=== PATIENT | male | born 1975 | race Two or more races ===

== ENCOUNTER 2019-02-07 11:11 | Outpatient (CLI) | payer OTHER | END 2019-02-07 11:17 | disposition home or self-care (01) | LOC: RAD 501 11:11 | DX: S43.112A Subluxation of left acromioclavicular joint, initial encounter (principal) ==

== ENCOUNTER 2020-07-23 13:22 | Outpatient (CLI) | payer OTHER | END 2020-07-23 13:32 | disposition home or self-care (01) | LOC: MRI 13:22 | PROVIDERS: ATTEND Orthopaedic Surgery | DX: M25.562 Pain in left knee (principal); M25.561 Pain in right knee | CPT/HCPCS: 73718 ==